=== PATIENT | male | born 1975 | race Caucasian/White ===

== ENCOUNTER → 2020-10-02 11:48 | Outpatient (CLI) | payer OTHER, SELFPAY ==
--- NOTE | ~2020-10-02 | XR_ITS ---
EXAMINATION: XR lumbar spine 2-3V EXAM DATE: 10/02/2020 12:20 INDICATION: Low back pain, no recent trauma. TECHNIQUE: Lumber spine frontal, lateral, lateral L5-S1 projections for interpretation. There is no prior study for comparison. FINDINGS: There is moderate disc disease L5-S1, mild to moderate at L4-5 and mild at the levels abov e. There is moderate lower lumbar facet arthropathy. Sacrum, sacroiliac joints, sacral arcuate lines are intact. Paraspinal soft tissue is unremarkable. The vertebral bodies are aligned in the AP dimens ion. No spondylolysis suspected. IMPRESSION: Moderate lower lumbar spondylosis. Reviewed, dictated and finalized at location A. SE WEIGHER
--- NOTE | ~2020-10-02 | XR_ITS ---
XR shoulder LT min 2V 10/02/2020 12:20 Indication: Left shoulder pain Procedure: 4 views left shoulder Comparison: No prior studies for comparison. Findings: No acute fracture, subluxation or dislocation. No significant joint space narrowing. Soft t issues are unremarkable. No foreign bodies. Impression: 1: No significant bone or joint abnormality. Reviewed, dictated and finalized at location A. RACT AGENT Impression: 1: No significant bone or joint abnormality.
--- NOTE | ~2020-10-02 | XR_ITS ---
XR shoulder RT min 2V 10/02/2020 12:20 Indication: Bilateral shoulder pain Procedure: 4 views right shoulder Comparison: No prior studies for comparison. Findings: No fracture, subluxation or dislocation. No significant soft tissue abnormality. No radiopa que foreign bodies. There is anatomic alignment. Impression: 1: No significant bone or joint abnormality. Reviewed, dictated and finalized at location A. ER ASSISTANT OPERATOR Impression: 1: No significant bone or joint abnormality.
== END ==
PROVIDERS: PCP Family Medicine Adolescent Medicine; Visit Provider Family Medicine Adolescent Medicine
DX: M47.896 Other spondylosis, lumbar region (principal); M25.511 Pain in right shoulder; M25.512 Pain in left shoulder
CPT/HCPCS: 72100; 73030